=== PATIENT | female | born 1970 | race Caucasian/White ===

== ENCOUNTER 2017-08-21 14:39 | Emergency (ER) | payer OTHER ==
[~2017-08-21] VITALS: Ht 180.3 cm; Wt 83.9 kg
[~2017-08-21 14:39] MED LIST: ACEBUTCAFT PO; ACEDIPPM PO; ACET325; ACET500; ACETAMINOPHEN; ALBU90OI; ALBU90OI INH; ALBU90OI6 INH; ALBUIS; ALPR.5 PO; AMOCLA875 PO; AMOX500 PO; ARIP10 PO; ASPI81CH PO; AZIT250 PO; BENZ100A PO; BUPR100; CALCA500CH; CIPR500 PO; CLAR250 PO; CLON.5; CLON.5 PO; CYAN1000I; CYCL10 PO; Cipro500 MG PO; Cyclobenzaprine5 MG PO; DIPATR PO; DIPHENHYDRAMINE; EPIN.3I; EXCEDRIN PM; FLUSAL5005; Flagyl500 MG PO; GABA300 PO; GRALISE1 EACH PO; HYDACE5 PO; HYDGUAL120 PO; HYDR1TAB94 PO; IBUP800 PO; LAMO25 PO; LATUDA20 MG PO; LEVFLO500 PO; LEXAPRO; LOPE2C PO; Levaquin500 MG PO; Lisinopril2.5 MG PO; MIRT15ST; Minipress1 MG PO; NAPR500EC PO; NITR100CA PO; Norco 10-325 T1 EACH PO; Norco 5-325 Ta1 EACH PO; ONDA4 PO; ONDA4ODT MM; OXYACE5T PO; PHENA200 PO; PRED10 PO; PRED20 PO; PROM25 PO; PROPRANOLOL HCL MC; Pepcid40 MG PO; Percocet 5-3251 EACH PO; Prednisone20 MG PO; Prilosec Otc20 MG PO; Protonix40 MG PO; QUET100 PO; RXHYDACE PO; SULTRIDS PO; TOPI25; TRAZ100; TRAZ150T57; TRAZ150T57 PO; TRAZ50; TYLENOL PM; VENL150ER PO; VENL75ER; Zithromax250 MG PO; Zofran Odt4 MG SL; [UNRECOGNIZED DRUG - CODE] PO
[2017-08-21 15:35] LABS: BASOPHILS ABSOLUTE AUTO 0.07 K/mm3 (0.00-0.23); BASOPHILS PERCENT AUTO 1 % (0-2); EOSINOPHILS ABSOLUTE AUTO 0.53 K/mm3 (0.00-0.68); EOSINOPHILS PERCENT AUTO 5 % (0-6); Hematocrit 45.6 % (33.0-51.0); IMMATURE GRAN ABSOLUTE AUTO 0.09 K/mm3 (0.00-0.10); IMMATURE GRAN PERCENT AUTO 1 % (0-1); LYMPHOCYTES ABSOLUTE AUTO 2.87 K/mm3 (0.84-5.20); LYMPHOCYTES PERCENT AUTO 26 % (21-46); MONOCYTES ABSOLUTE AUTO 0.61 K/mm3 (0.16-1.47); MONOCYTES PERCENT AUTO 6 % (4-13); Mean Corpuscular HGB 31.3 pg (26.0-34.0); Mean Corpuscular HGB Conc 32.9 g/dL (31.5-36.5); Mean Corpuscular Volume 95 fL (80-100); Mean Platelet Volume 9.2 fL (9.1-12.4); NEUTROPHILS ABSOLUTE AUTO 6.96 K/mm3 (1.96-9.15); NEUTROPHILS PERCENT AUTO 63 % (41-73); Platelet Count 258 K/mm3 (150-400); RDW Coefficient Variation 12.8 % (11.7-14.2); RDW Standard Deviation 44.8 fL (35.1-46.3); Red Blood Cell Count 4.79 M/mm3 (3.80-5.20); White Blood Cell Count 11.13 K/mm3 (4.00-11.30)
[2017-08-21 15:55] LABS: Alanine Aminotransfer (ALT/SGP 21 U/L (12-78); Albumin, Blood 3.4 g/dL (3.4-5.0); Albumin/Globulin Ratio 0.9 (0.8-1.8); Alk Phos 82 U/L (50-136); Anion Gap 9 mmol/L (6-16); Aspartate Aminotrans (AST/SGOT 18 U/L (12-37); Bilirubin, Total 0.2 mg/dL (0.1-1.0); Blood Urea Nitrogen 11 mg/dL (8-24); Bun/Creatinine Ratio 13.7 (12.0-20.0); CO2, Blood 24 mmol/L (21-32); Calcium, Blood 8.9 mg/dL (8.5-10.1); Chloride, Blood 108 mmol/L (98-108); Globulin, Blood 3.6 g/dL (2.2-4.0); Glomerular Filtration Rate >60 (60-); Glucose, Blood 97 mg/dL (70-99); Potassium, Blood 3.8 mmol/L (3.5-5.5); Sodium, Blood 141 mmol/L (136-145)
[2017-08-21 16:05] LABS: Source, Urine Clean Catch
[2017-08-21 16:12] LABS: Appearance, Urine Clear (Clear); Bilirubin, Urine Neg (Neg); Blood, Urine 1+ (Neg); Color, Urine Yellow (P-Yellow); Glucose Qualitative, Urine Neg (Neg); Ketones, Urine Neg (Neg); Leukocyte Esterase, Urine 1+ (Neg); Nitrite, Urine Neg (Neg); Protein, Urine Neg (Neg); Specific Gravity, Urine 1.025 (1.003-1.022); Urobilinogen, Urine 1+ (Normal)
[2017-08-21 16:21] LABS: Squamous Epithelial Cells Many /hpf (Few)
[2017-08-21 16:22] LABS: Bacteria Few /hpf; Calcium Oxalate Crystals Many /hpf; Red Blood Cells, Urine Not Seen /hpf (0-2); White Blood Cells, Urine 0-2 /hpf (0-5)
[2017-08-21] MEDS ORDERED: LATUDA40 MG PO (16:54)
[2017-08-21] MEDS ORDERED: OXYB5 PO (16:55)
[2017-08-21] MEDS ORDERED: GABA100 PO (16:56)
[2017-08-21] MEDS ORDERED: HYOSCYAMINE0.375 M1 PO (16:57)
[2017-08-21] MEDS ORDERED: Kristalose20 GM PO (19:25)
[2018-03-12] MEDS ORDERED: GABA400 PO (09:21)
[2018-03-12] MEDS ORDERED: CLON1 PO (09:22)
[2018-03-12] MEDS ORDERED: EPINEPHRIN0.3 MG/0.3 (09:23)
[2018-03-12] MEDS ORDERED: CYAN500 PO (09:23)
[2018-03-12] MEDS ORDERED: TUMS200 MG (09:24)
[2018-03-12] MEDS ORDERED: Effexor Xr150 MG PO (09:24)
[2018-03-12] MEDS ORDERED: ALBU90OI61 INH (09:25)
[2018-03-12] MEDS ORDERED: SIMV10 PO (09:26)
[2018-03-12] MEDS ORDERED: Cyclobenzaprine5 MG PO (09:26)
[2018-03-12] MEDS ORDERED: CONEST.625 VAG (09:28)
[2018-03-12] MEDS ORDERED: Omeprazole20 M1 PO (09:29)
[2018-03-12] MEDS ORDERED: ANORO ELLIPTA1 EACH INH (09:29)
[2018-03-12] MEDS ORDERED: Estradiol1 MG PO (09:29)
[2018-03-12] MEDS ORDERED: Flonase 0.05% N16 GM (09:30)
[2018-03-12] MEDS ORDERED: TRELEGY ELLIPT1 EACH INH (09:31)
[2018-03-12] MEDS ORDERED: Oxytrol3.9 MG TD (09:32)
[2018-04-15] MEDS ORDERED: Norco 5-325 Ta1 EACH PO ×2 (19:50→20:17)
[2018-04-15] MEDS ORDERED: CEPH500 PO (19:50)
[2018-04-15] MEDS ORDERED: Pyridium100 MG PO ×2 (19:50→20:17)
[2018-04-15] MEDS ORDERED: Zofran Odt4 MG PO ×2 (20:12→20:17)
[2018-04-15] MEDS ORDERED: NITR100CA PO (20:17)
[2018-04-22] MEDS ORDERED: Zofran Odt4 MG SL (18:52)
[2018-04-22] MEDS ORDERED: Flagyl500 MG PO (18:52)
[2018-04-22] MEDS ORDERED: ACETAMINOPHEN500 MG PO (18:52)
[2018-05-25] MEDS ORDERED: LITH300ER PO (19:22)
[2018-05-26] MEDS ORDERED: CALCIUM W/VIT D PO (15:29)
== END 2017-08-21 19:59 | disposition home or self-care (01) ==
LOC: ER 14:39
PROVIDERS: Emergency Medicine
DX: K59.00 Constipation, unspecified (principal); F41.9 Anxiety disorder, unspecified; J44.9 Chronic obstructive pulmonary disease, unspecified; Z87.891 Personal history of nicotine dependence; Z91.038 Other insect allergy status; Z79.82 Long term (current) use of aspirin; Z79.899 Other long term (current) drug therapy; Z91.013 Allergy to seafood; Z91.018 Allergy to other foods
CPT/HCPCS: 36415; 74177; 80053; 81001; 83690; 85025; 87077; 87086; 87186; 96361; 96374; 96375; 99284; J1170; J1885; J2405; J7030; Q9967

== ENCOUNTER 2018-03-15 19:19 | Emergency (ER) | payer OTHER ==
[~2018-03-15] VITALS: Ht 180.3 cm; Wt 90.7 kg
[~2018-03-15 19:19] MED LIST changes: +ALBU90OI61; +ANORO ELLIPTA1 EACH INH; +CLON1 PO; +CONEST.625 VAG; +CYAN500 PO; +EPINEPHRIN0.3 MG/0.3; +Effexor Xr150 MG PO; +Estradiol1 MG PO; +Flonase 0.05% N16 GM; +GABA100 PO; +GABA400 PO; +HYOSCYAMINE0.375 M1 PO; +Kristalose20 GM PO; +LATUDA40 MG PO; +OXYB5 PO; +Omeprazole20 M1 PO; +Oxytrol3.9 MG TD; +SIMV10 PO; +TRELEGY ELLIPT1 EACH INH; +TUMS200 MG
[2018-03-15] MEDS ORDERED: CRUTCH3 XX (20:27)
[2018-03-15] MEDS ORDERED: IBUP400 PO (20:27)
== END 2018-03-15 20:53 | disposition home or self-care (01) ==
LOC: ER 19:19
DX: S80.02XA Contusion of left knee, initial encounter (principal); S50.312A Abrasion of left elbow, initial encounter; W18.30XA Fall on same level, unspecified, initial encounter; Z91.030 Bee allergy status; Z91.013 Allergy to seafood; Z91.018 Allergy to other foods; Z79.899 Other long term (current) drug therapy; Z79.82 Long term (current) use of aspirin; F41.9 Anxiety disorder, unspecified; Z87.891 Personal history of nicotine dependence; J44.9 Chronic obstructive pulmonary disease, unspecified
CPT/HCPCS: 29505; 73562-LT; 99283-25

== ENCOUNTER 2018-03-19 11:24 | Day surgery (SDC) | payer OTHER ==
[~2018-03-19] VITALS: Ht 180.3 cm; Wt 96.8 kg
[~2018-03-19 11:24] MED LIST changes: +CRUTCH3 XX; +IBUP400 PO
== END 2018-03-19 17:20 | disposition home or self-care (01) ==
LOC: ORSCSDS 11:24
PROVIDERS: Obstetrics & Gynecology Gynecology
PROC: 0UT24ZZ Resection of Bilateral Ovaries, Percutaneous Endoscopic Approach (ICD-10-PCS; principal; 2018-03-19 13:00)
PROC: 0TSD0ZZ Reposition Urethra, Open Approach (ICD-10-PCS; principal; 2018-03-19 13:00)
PROC: 0UT74ZZ Resection of Bilateral Fallopian Tubes, Percutaneous Endoscopic Approach (ICD-10-PCS; principal; 2018-03-19 13:00)
DX: N39.3 Stress incontinence (female) (male) (principal); R10.2 Pelvic and perineal pain; N80.3 Endometriosis of pelvic peritoneum; N39.41 Urge incontinence; I10 Essential (primary) hypertension; K21.9 Gastro-esophageal reflux disease without esophagitis; F43.10 Post-traumatic stress disorder, unspecified; F32.9 Major depressive disorder, single episode, unspecified; J45.909 Unspecified asthma, uncomplicated; Z79.899 Other long term (current) drug therapy
CPT/HCPCS: 88305; C1771; J0171; J0690; J1100; J1885; J1940; J2250; J2405; J2710; J3010

== ENCOUNTER 2018-03-27 12:03 | Emergency (ER) | payer OTHER ==
[~2018-03-27] VITALS: Ht 180.3 cm; Wt 90.7 kg
[2018-03-27] MEDS ORDERED: STERIOD INHALER (13:26)
[2018-03-27] MEDS ORDERED: Hydrocodone-Ap1 EA23 PO (13:26)
[2018-03-27 13:32] LABS: Source, Urine Clean Catch
[2018-03-27 13:41] LABS: Bilirubin, Urine Neg (Neg); Blood, Urine 3+ (Neg); Glucose Qualitative, Urine Neg (Neg); Ketones, Urine Neg (Neg); Leukocyte Esterase, Urine 2+ (Neg); Nitrite, Urine Neg (Neg); Protein, Urine Neg (Neg); Specific Gravity, Urine 1.025 (1.003-1.022); Urobilinogen, Urine NORM (Normal)
[2018-03-27 13:52] LABS: Appearance, Urine Cloudy (Clear); Color, Urine Yellow (P-Yellow)
[2018-03-27 13:54] LABS: Bacteria Many /hpf; Squamous Epithelial Cells Mod /hpf (Few)
[2018-03-27 14:08] LABS: BASOPHILS ABSOLUTE AUTO 0.07 K/mm3 (0.00-0.23); BASOPHILS PERCENT AUTO 1 % (0-2); EOSINOPHILS ABSOLUTE AUTO 0.26 K/mm3 (0.00-0.68); EOSINOPHILS PERCENT AUTO 3 % (0-6); Hematocrit 44.5 % (33.0-51.0); Hemoglobin 14.5 g/dL (11.5-16.0); IMMATURE GRAN ABSOLUTE AUTO 0.08 K/mm3 (0.00-0.10); IMMATURE GRAN PERCENT AUTO 1 % (0-1); LYMPHOCYTES ABSOLUTE AUTO 2.39 K/mm3 (0.84-5.20); LYMPHOCYTES PERCENT AUTO 28 % (21-46); MONOCYTES ABSOLUTE AUTO 0.72 K/mm3 (0.16-1.47); MONOCYTES PERCENT AUTO 8 % (4-13); Mean Corpuscular HGB 31.4 pg (26.0-34.0); Mean Corpuscular HGB Conc 32.6 g/dL (31.5-36.5); Mean Corpuscular Volume 96 fL (80-100); Mean Platelet Volume 8.6 fL (9.1-12.4); NEUTROPHILS ABSOLUTE AUTO 5.16 K/mm3 (1.96-9.15); NEUTROPHILS PERCENT AUTO 60 % (41-73); Platelet Count 266 K/mm3 (150-400); RDW Coefficient Variation 13.2 % (11.7-14.2); Red Blood Cell Count 4.62 M/mm3 (3.80-5.20); White Blood Cell Count 8.68 K/mm3 (4.00-11.30)
[2018-03-27 14:30] LABS: Alanine Aminotransfer (ALT/SGP 28 U/L (12-78); Albumin, Blood 3.4 g/dL (3.4-5.0); Albumin/Globulin Ratio 0.9 (0.8-1.8); Alk Phos 90 U/L (50-136); Anion Gap 6 mmol/L (6-16); Aspartate Aminotrans (AST/SGOT 26 U/L (12-37); Bilirubin, Total 0.5 mg/dL (0.1-1.0); Blood Urea Nitrogen 7 mg/dL (8-24); CO2, Blood 26 mmol/L (21-32); Calcium, Blood 8.8 mg/dL (8.5-10.1); Chloride, Blood 108 mmol/L (98-108); Creatinine, Blood 0.88 mg/dL (0.40-1.00); Globulin, Blood 3.7 g/dL (2.2-4.0); Glomerular Filtration Rate >60 (60-); Glucose, Blood 96 mg/dL (70-99); Potassium, Blood 3.9 mmol/L (3.5-5.5); Sodium, Blood 140 mmol/L (136-145); Total Protein, Blood 7.1 g/dL (6.4-8.2)
[2018-03-27] MEDS ORDERED: CEPH500 PO (15:51)
[2018-03-27] MEDS ORDERED: Prednisone20 MG PO (15:51)
== END 2018-03-27 16:16 | disposition home or self-care (01) ==
LOC: ER 12:03
PROVIDERS: Emergency Medicine; Physician Assistant
DX: N39.0 Urinary tract infection, site not specified (principal); L25.9 Unspecified contact dermatitis, unspecified cause; Z91.030 Bee allergy status; Z91.013 Allergy to seafood; Z88.8 Allergy status to other drugs, medicaments and biological substances; Z91.018 Allergy to other foods; Z79.899 Other long term (current) drug therapy; Z79.82 Long term (current) use of aspirin; Z79.52 Long term (current) use of systemic steroids; F41.9 Anxiety disorder, unspecified; J44.9 Chronic obstructive pulmonary disease, unspecified
CPT/HCPCS: 36415; 80053; 81001; 83690; 85025; 87086; 96361; 96365; 96375; 99283-25; J0696; J1170; J3010; J7030

== ENCOUNTER → 2018-10-12 | Outpatient (CLI) | payer OTHER ==
[~2018-10-12] MED LIST changes: +ACETAMINOPHEN500 MG PO; -ALBU90OI61; +ALBU90OI61 INH; +CALCIUM W/VIT D PO; +CEPH500 PO; +Hydrocodone-Ap1 EA23 PO; +LITH300ER PO; +Pyridium100 MG PO; +STERIOD INHALER; +Zofran Odt4 MG PO
== END | disposition home or self-care (01) ==
LOC: LAB SHORT 13:55 → LAB EV 13:55
DX: N39.0 Urinary tract infection, site not specified (principal)
CPT/HCPCS: 87086

== ENCOUNTER 2018-11-04 11:43 | Emergency (ER) | payer MEDICARE, OTHER ==
[~2018-11-04] VITALS: Ht 180.3 cm; Wt 88.5 kg
[2018-11-04 12:06] LABS: BASOPHILS ABSOLUTE AUTO 0.06 K/mm3 (0.00-0.23); BASOPHILS PERCENT AUTO 1 % (0-2); EOSINOPHILS ABSOLUTE AUTO 0.26 K/mm3 (0.00-0.68); EOSINOPHILS PERCENT AUTO 3 % (0-6); Hemoglobin 16.3 g/dL (11.5-16.0); IMMATURE GRAN ABSOLUTE AUTO 0.03 K/mm3 (0.00-0.10); IMMATURE GRAN PERCENT AUTO 0 % (0-1); LYMPHOCYTES ABSOLUTE AUTO 2.38 K/mm3 (0.84-5.20); LYMPHOCYTES PERCENT AUTO 25 % (21-46); MONOCYTES ABSOLUTE AUTO 0.46 K/mm3 (0.16-1.47); MONOCYTES PERCENT AUTO 5 % (4-13); Mean Corpuscular HGB 31.4 pg (26.0-34.0); Mean Corpuscular Volume 98 fL (80-100); Mean Platelet Volume 9.8 fL (9.1-12.4); NEUTROPHILS ABSOLUTE AUTO 6.43 K/mm3 (1.96-9.15); NEUTROPHILS PERCENT AUTO 67 % (41-73); Platelet Count 266 K/mm3 (150-400); RDW Coefficient Variation 12.7 % (11.7-14.2); RDW Standard Deviation 46.2 fL (35.1-46.3); Red Blood Cell Count 5.19 M/mm3 (3.80-5.20); White Blood Cell Count 9.62 K/mm3 (4.00-11.30)
[2018-11-04 12:24] LABS: Alanine Aminotransfer (ALT/SGP 23 U/L (12-78); Albumin, Blood 3.8 g/dL (3.4-5.0); Albumin/Globulin Ratio 1.1 (0.8-1.8); Alk Phos 89 U/L (50-136); Anion Gap 4 mmol/L (6-16); Aspartate Aminotrans (AST/SGOT 21 U/L (12-37); Bilirubin, Total 0.4 mg/dL (0.1-1.0); Blood Urea Nitrogen 4 mg/dL (8-24); Bun/Creatinine Ratio 4.8 (12.0-20.0); CO2, Blood 27 mmol/L (21-32); Calcium, Blood 9.4 mg/dL (8.5-10.1); Chloride, Blood 109 mmol/L (98-108); Creatinine, Blood 0.84 mg/dL (0.40-1.00); Globulin, Blood 3.5 g/dL (2.2-4.0); Glomerular Filtration Rate >60 (60-); Glucose, Blood 110 mg/dL (70-99); Potassium, Blood 3.2 mmol/L (3.5-5.5); Sodium, Blood 140 mmol/L (136-145); Total Protein, Blood 7.3 g/dL (6.4-8.2); Troponin I <0.015 ng/mL (0.000-0.040)
[2018-11-04 14:12] LABS: Lithium 1.32 mmol/L (0.60-1.20)
[2018-11-04] MEDS ORDERED: ANORO ELLIPTA1 EACH INH (14:59)
[2018-11-04] MEDS ORDERED: STIOLTO RESPIMAT4 GM IH (14:59)
[2018-11-04 16:38] LABS: Anion Gap 3 mmol/L (6-16); Blood Urea Nitrogen 3 mg/dL (8-24); Bun/Creatinine Ratio 3.9 (12.0-20.0); CO2, Blood 27 mmol/L (21-32); Calcium, Blood 8.7 mg/dL (8.5-10.1); Chloride, Blood 111 mmol/L (98-108); Creatinine, Blood 0.77 mg/dL (0.40-1.00); Glomerular Filtration Rate >60 (60-); Glucose, Blood 73 mg/dL (70-99); Sodium, Blood 141 mmol/L (136-145)
[2018-11-04 16:42] LABS: Lithium 1.04 mmol/L (0.60-1.20)
== END 2018-11-04 16:59 | disposition home or self-care (01) ==
LOC: ER 11:43
PROVIDERS: Emergency Medicine
DX: R07.9 Chest pain, unspecified (principal); F41.9 Anxiety disorder, unspecified; E87.6 Hypokalemia; F31.9 Bipolar disorder, unspecified; J44.9 Chronic obstructive pulmonary disease, unspecified; Z91.038 Other insect allergy status; Z91.013 Allergy to seafood; Z88.5 Allergy status to narcotic agent; Z88.8 Allergy status to other drugs, medicaments and biological substances; Z91.018 Allergy to other foods; Z79.899 Other long term (current) drug therapy; Z79.82 Long term (current) use of aspirin; Z87.891 Personal history of nicotine dependence
CPT/HCPCS: 36415; 71046; 80048; 80053; 80178; 83690; 84484; 85025; 93005; 93010; 96360; 99285-25; J7030

== ENCOUNTER → 2019-01-20 | Outpatient (CLI) | payer OTHER ==
[~2019-01-20] MED LIST changes: +ATOR80 PO; +Aspirin EC81 MG PO; +B-121000 MC2 PO; +CLON2 PO; +EPINEPHRIN0.3 MG/0.3 IM; +Estrogel93 GM VAG; +IBU600 MG PO; +LITH300C PO; +METO10 PO; +OMEPRAZOLE20 MG PO; +ONDA8 PO; +PROAIR RESPICL90 MCG INH; +STIOLTO RESPIMAT4 GM IH; +STIOLTO RESPIMAT4 GM INH; +TUMS500 MG PO
[2019-01-20 15:20] LABS: Source, Urine Clean Catch
[2019-01-20 17:50] LABS: Appearance, Urine Hazy (Clear); Bilirubin, Urine Neg (Neg); Blood, Urine 3+ (Neg); Color, Urine Yellow (P-Yellow); Glucose Qualitative, Urine Neg (Neg); Ketones, Urine Neg (Neg); Leukocyte Esterase, Urine 3+ (Neg); Nitrite, Urine Neg (Neg); Protein, Urine 1+ (Neg); Specific Gravity, Urine 1.005 (1.003-1.022); Urobilinogen, Urine NORM (Normal)
[2019-01-20 18:15] LABS: Bacteria Few /hpf; Squamous Epithelial Cells Mod /hpf (Few); White Blood Cells, Urine 25-50 /hpf (0-5)
== END | disposition home or self-care (01) ==
LOC: LAB 15:17 → LAB SHORT 15:17
PROVIDERS: Nurse Practitioner Family
DX: R30.0 Dysuria (principal)
CPT/HCPCS: 81001; 87077; 87086; 87186

== ENCOUNTER 2019-03-16 20:42 | Emergency (ER) | payer OTHER ==
[~2019-03-16] VITALS: Ht 170.2 cm; Wt 63.5 kg
[~2019-03-16 20:42] MED LIST changes: -IBU600 MG PO
[2019-03-16] MEDS ORDERED: IBU600 MG PO (23:26)
== END 2019-03-16 23:47 | disposition home or self-care (01) ==
LOC: ER 20:42
DX: S93.602A Unspecified sprain of left foot, initial encounter (principal); F31.9 Bipolar disorder, unspecified; F41.9 Anxiety disorder, unspecified; F43.10 Post-traumatic stress disorder, unspecified; J44.9 Chronic obstructive pulmonary disease, unspecified; Z87.891 Personal history of nicotine dependence; K31.84 Gastroparesis; Z91.013 Allergy to seafood; Z88.8 Allergy status to other drugs, medicaments and biological substances; Z91.018 Allergy to other foods; Z88.5 Allergy status to narcotic agent; Z91.038 Other insect allergy status; Z79.82 Long term (current) use of aspirin; W19.XXXA Unspecified fall, initial encounter; Z79.899 Other long term (current) drug therapy
CPT/HCPCS: 73630; 73700; 99284-25; A9270-GY

== ENCOUNTER 2019-03-21 12:26 | Day surgery (SDC) | payer OTHER ==
[~2019-03-21] VITALS: Ht 180.3 cm; Wt 71.7 kg
[~2019-03-21 12:26] MED LIST changes: +IBU600 MG PO
--- NOTE | 2019-03-21 14:33 | NUR ---
03/21/[address] CONSULTED, INTO ROOM TO SPEAK WITH PATIENT. DR. TAYLOR & DR. BYERS AGREE TO CONTINUE PROCEDURE WITH ANESTHESIA.
== END 2019-03-21 16:20 | disposition home or self-care (01) ==
LOC: ORSCSDS 12:26
PROVIDERS: Internal Medicine Gastroenterology
PROC: 0DBE8ZX Excision of Large Intestine, Via Natural or Artificial Opening Endoscopic, Diagnostic (ICD-10-PCS; principal; 2019-03-21 13:45)
PROC: 0DBK8ZX Excision of Ascending Colon, Via Natural or Artificial Opening Endoscopic, Diagnostic (ICD-10-PCS; principal; 2019-03-21 13:45)
DX: R19.7 Diarrhea, unspecified (principal); R10.32 Left lower quadrant pain; D12.2 Benign neoplasm of ascending colon; J44.9 Chronic obstructive pulmonary disease, unspecified; Z87.891 Personal history of nicotine dependence; Z99.81 Dependence on supplemental oxygen; F31.9 Bipolar disorder, unspecified; Z79.899 Other long term (current) drug therapy
CPT/HCPCS: 88305; J2704; J7120

== ENCOUNTER 2020-01-12 19:35 | Emergency (ER) | payer OTHER ==
[~2020-01-12] VITALS: Ht 182.9 cm; Wt 69.8 kg
[2020-01-12] MEDS ORDERED: LAMOTRIGINE100 M1 PO (20:38)
== END 2020-01-12 21:25 | disposition home or self-care (01) ==
LOC: ER 19:35
DX: J02.9 Acute pharyngitis, unspecified (principal); F41.9 Anxiety disorder, unspecified; J44.9 Chronic obstructive pulmonary disease, unspecified; F31.9 Bipolar disorder, unspecified; Z91.030 Bee allergy status; Z91.013 Allergy to seafood; Z88.5 Allergy status to narcotic agent; Z91.018 Allergy to other foods; Z79.899 Other long term (current) drug therapy; Z79.82 Long term (current) use of aspirin; Z87.891 Personal history of nicotine dependence
CPT/HCPCS: 36415; 86308; 87081; 87430; 99282

== ENCOUNTER → 2020-07-25 | Outpatient (CLI) | payer OTHER ==
[~2020-07-25] MED LIST changes: +ATOR40TA PO; -ATOR80 PO; -B-121000 MC2 PO; +B-121000 MC7 PO; -Effexor Xr150 MG PO; +IMITREX50 M1 PO; +Inderal40 MG PO; +LAMOTRIGINE100 M1 PO; +LORA.5 PO; +NEURONTIN300 MG PO; +TOPI50 PO; +TYLENOL PM PO
== END ==
LOC: LAB SHORT 15:20 → LAB 15:20
DX: R10.9 Unspecified abdominal pain (principal)
CPT/HCPCS: 87086

== ENCOUNTER 2020-09-09 09:26 | Observation (INO) | payer OTHER ==
[~2020-09-09] VITALS: Ht 185.4 cm; Wt 71.5 kg
[~2020-09-09 09:26] MED LIST changes: -IMITREX50 M1 PO; -Inderal40 MG PO; -LORA.5 PO; -NEURONTIN300 MG PO; -TOPI50 PO; -TYLENOL PM PO
[2020-09-09 09:57] LABS: BASOPHILS ABSOLUTE AUTO 0.08 K/mm3 (0.00-0.23); BASOPHILS PERCENT AUTO 1 % (0-2); EOSINOPHILS ABSOLUTE AUTO 0.59 K/mm3 (0.00-0.68); EOSINOPHILS PERCENT AUTO 6 % (0-6); Hematocrit 45.6 % (33.0-51.0); Hemoglobin 14.5 g/dL (11.5-16.0); IMMATURE GRAN ABSOLUTE AUTO 0.03 K/mm3 (0.00-0.10); IMMATURE GRAN PERCENT AUTO 0 % (0-1); LYMPHOCYTES ABSOLUTE AUTO 2.08 K/mm3 (0.84-5.20); LYMPHOCYTES PERCENT AUTO 20 % (21-46); MONOCYTES ABSOLUTE AUTO 0.45 K/mm3 (0.16-1.47); MONOCYTES PERCENT AUTO 4 % (4-13); Mean Corpuscular HGB 32.1 pg (26.0-34.0); Mean Corpuscular HGB Conc 31.8 g/dL (31.5-36.5); Mean Corpuscular Volume 101 fL (80-100); Mean Platelet Volume 9.9 fL (9.1-12.4); NEUTROPHILS ABSOLUTE AUTO 7.42 K/mm3 (1.96-9.15); NEUTROPHILS PERCENT AUTO 70 % (41-73); Platelet Count 298 K/mm3 (150-400); RDW Coefficient Variation 13.3 % (11.7-14.2); RDW Standard Deviation 49.8 fL (35.1-46.3); Red Blood Cell Count 4.52 M/mm3 (3.80-5.20); White Blood Cell Count 10.65 K/mm3 (4.00-11.30)
[2020-09-09 10:20] LABS: Alanine Aminotransfer (ALT/SGP 18 U/L (12-78); Albumin, Blood 3.4 g/dL (3.4-5.0); Alk Phos 116 U/L (50-136); Anion Gap 3 mmol/L (6-16); Aspartate Aminotrans (AST/SGOT 12 U/L (12-37); Bilirubin, Total 0.3 mg/dL (0.1-1.0); Blood Urea Nitrogen 7 mg/dL (8-24); Bun/Creatinine Ratio 7.1 (12.0-20.0); CO2, Blood 25 mmol/L (21-32); Calcium, Blood 8.7 mg/dL (8.5-10.1); Chloride, Blood 112 mmol/L (98-108); Creatinine, Blood 0.98 mg/dL (0.40-1.00); Globulin, Blood 3.3 g/dL (2.2-4.0); Glomerular Filtration Rate >60 (60-); Glucose, Blood 95 mg/dL (70-99); Potassium, Blood 3.8 mmol/L (3.5-5.5); Sodium, Blood 140 mmol/L (136-145); Total Protein, Blood 6.7 g/dL (6.4-8.2); Troponin I <0.015 ng/mL (0.000-0.040)
[2020-09-09 10:23] LABS: Source, Urine Clean Catch
[2020-09-09 10:25] LABS: Bilirubin, Urine Neg (Neg); Blood, Urine Neg (Neg); Glucose Qualitative, Urine Neg (Neg); Ketones, Urine Neg (Neg); Leukocyte Esterase, Urine 1+ (Neg); Nitrite, Urine Neg (Neg); Protein, Urine Neg (Neg); Urobilinogen, Urine NORM (Normal); pH, Urine 6.5 (5.0-8.0)
[2020-09-09 10:33] LABS: Appearance, Urine Clear (Clear); Bacteria Rare /hpf; Color, Urine Yellow (P-Yellow); Red Blood Cells, Urine Not Seen /hpf (0-2); Squamous Epithelial Cells Rare /hpf (Few); White Blood Cells, Urine 0-2 /hpf (0-5)
[2020-09-09] MEDS ORDERED: LORA.5 PO (10:34)
[2020-09-09] MEDS ORDERED: Inderal40 MG PO ×2 (10:34→12:12)
[2020-09-09] MEDS ORDERED: TOPI50 PO (10:35)
[2020-09-09] MEDS ORDERED: TYLENOL PM PO (10:41)
[2020-09-09] MEDS ORDERED: IMITREX50 M1 PO (10:42)
[2020-09-09 11:07] LABS: Lithium 1.42 mmol/L (0.60-1.20)
[2020-09-09] MEDS ORDERED: NEURONTIN300 MG PO (12:12)
[2020-09-09] MEDS ORDERED: LITH300C PO (12:14)
--- NOTE | 2020-09-09 15:10 | NUR ---
SBAR REPORT FROM TANYA BURGESS RN
[2020-09-09 16:21] LABS: Lithium 1.09 mmol/L (0.60-1.20)
[2020-09-10 06:18] LABS: Anion Gap 3 mmol/L (6-16); Blood Urea Nitrogen 7 mg/dL (8-24); Bun/Creatinine Ratio 7.8 (12.0-20.0); CO2, Blood 23 mmol/L (21-32); Calcium, Blood 8.7 mg/dL (8.5-10.1); Chloride, Blood 118 mmol/L (98-108); Creatinine, Blood 0.89 mg/dL (0.40-1.00); Glomerular Filtration Rate >60 (60-); Glucose, Blood 90 mg/dL (70-99); Lithium 0.75 mmol/L (0.60-1.20); Potassium, Blood 3.9 mmol/L (3.5-5.5); Sodium, Blood 144 mmol/L (136-145)
--- NOTE | 2020-09-10 07:35 | NUR ---
SHIFT SUMMARY PATIENT ALERT AND ORIENTED. INDEPENDENT IN HER ROOM. WAS MEDICATED ONCE PER EMAR FOR PAIN. WAS ABLE TO SLEEP WELL OVERNIGHT. CONTINUES TO REPORT FEELING SOME CHEST PRESSURE. IV PATENT AND INFUSING. BED IN LOWEST POSITION WITH WHEELS LOCKED. CALL LIGHT WITHIN REACH. REPORT GIVEN TO ONCOMING RN.
--- NOTE | 2020-09-10 11:02 | NUR ---
1030: REPORT GIVEN TO [facility] AND CARE TRANSFERRED.
--- NOTE | 2020-09-10 12:42 | NUR ---
PT TO DISCHARGE HOME . IV REMOVED, NO SS OF INFECTION NOTED. PT TO DRESS SELF. TRIED TO CALL AND SCHEDULE FOLLOW UP WITH PCP BUT OFFICES CLOSED TILL 1300 AND PT WANTING TO GO. PT TO MAKE APPOINTMENTS HERSELF. PT REQUESTED TO WALK OUT. SHE IS STABLE AND HAS WITH HER TO TAKE HER HOME.
== END 2020-09-10 14:10 | disposition home or self-care (01) ==
LOC: ER 09:26 → MEDS 09:27 → ERHOLD 09:27 → MEDS 15:32 → ENPENDDIS 09-10 12:05 → MEDS 09-10 14:10
PROVIDERS: Emergency Medicine; Nurse Practitioner Acute Care; ADMIT Hospitalist
DX: R00.1 Bradycardia, unspecified (principal); K52.89 Other specified noninfective gastroenteritis and colitis; F41.1 Generalized anxiety disorder; G43.909 Migraine, unspecified, not intractable, without status migrainosus; J44.9 Chronic obstructive pulmonary disease, unspecified; I10 Essential (primary) hypertension; K31.84 Gastroparesis; F31.89 Other bipolar disorder; Z66 Do not resuscitate; Z86.73 Personal history of transient ischemic attack (TIA), and cerebral infarction without residual deficits; Z79.82 Long term (current) use of aspirin; Z87.891 Personal history of nicotine dependence; Z91.038 Other insect allergy status; Z88.5 Allergy status to narcotic agent; Z91.013 Allergy to seafood; Z88.8 Allergy status to other drugs, medicaments and biological substances; Z91.018 Allergy to other foods
CPT/HCPCS: 36415; 74177; 80048; 80053; 80178; 81001; 83690; 84484; 85025; 85651; 86140; 87086; 93005; 93010; 96372; 96372-59; 96374-59; 96375; 99285-25; A9270; G0378; J1650; J2405; J3010; J7030; J7120; Q9967

== ENCOUNTER → 2020-11-02 | Outpatient (CLI) | payer OTHER ==
[~2020-11-02] MED LIST changes: +IMITREX50 M1 PO; +Inderal40 MG PO; +LORA.5 PO; +NEURONTIN300 MG PO; +TOPI50 PO; +TYLENOL PM PO
[2020-11-05 01:09] LABS: CHLAMYDIA TRACHOMATIS, NAA Negative (Negative)
== END | disposition home or self-care (01) ==
LOC: LAB SHORT 18:04
PROVIDERS: Nurse Practitioner Family
DX: R30.0 Dysuria (principal); N89.8 Other specified noninflammatory disorders of vagina
CPT/HCPCS: 87086; 87491; 87591

== ENCOUNTER → 2020-11-02 | Outpatient (CLI) | payer OTHER ==
[2020-11-03 11:10] LABS: Candida species (DNA Probe) Negative (NEGATIVE); G. vaginalis (DNA Probe) Positive (NEGATIVE); T. vaginalis (DNA Probe) Negative (NEGATIVE)
== END | disposition home or self-care (01) ==
LOC: LAB SHORT 17:24 → PLD 17:24
PROVIDERS: Nurse Practitioner Family
DX: N89.8 Other specified noninflammatory disorders of vagina (principal); R30.0 Dysuria
CPT/HCPCS: 87070; 87086; 87205; 87480; 87491; 87510; 87591; 87660

== ENCOUNTER → 2021-12-05 | Outpatient (CLI) | payer OTHER ==
[~2021-12-05] MED LIST changes: +CONEST.9; +IBU800 MG PO; +PREG25
== END | disposition home or self-care (01) ==
LOC: LAB SHORT 12:00 → LAB 12:00
DX: L60.3 Nail dystrophy (principal)
CPT/HCPCS: 87102

== ENCOUNTER 2021-12-18 09:17 | Emergency (ER) | payer OTHER ==
[~2021-12-18] VITALS: Ht 172.7 cm; Wt 72.6 kg
[~2021-12-18 09:17] MED LIST changes: -IBU800 MG PO
[2021-12-18] MEDS ORDERED: IBU800 MG PO (10:28)
== END 2021-12-18 11:06 | disposition home or self-care (01) ==
LOC: ER 09:17
DX: M79.672 Pain in left foot (principal); J44.9 Chronic obstructive pulmonary disease, unspecified; W01.0XXA Fall on same level from slipping, tripping and stumbling without subsequent striking against object, initial encounter; Z88.5 Allergy status to narcotic agent; Z88.8 Allergy status to other drugs, medicaments and biological substances; Z91.018 Allergy to other foods; Z91.030 Bee allergy status; Z91.013 Allergy to seafood; Z79.899 Other long term (current) drug therapy; Z79.82 Long term (current) use of aspirin; Z87.891 Personal history of nicotine dependence
CPT/HCPCS: 73630; A9270

== ENCOUNTER → 2022-12-07 | Outpatient (CLI) | payer OTHER ==
[~2022-12-07] MED LIST changes: +IBU800 MG PO
[2022-12-08 09:27] LABS: Candida species (DNA Probe) Negative (NEGATIVE); G. vaginalis (DNA Probe) Positive (NEGATIVE); T. vaginalis (DNA Probe) Negative (NEGATIVE)
== END ==
LOC: LAB SHORT 18:22 → LAB 18:22
PROVIDERS: Family Medicine
DX: N89.8 Other specified noninflammatory disorders of vagina (principal)
CPT/HCPCS: 87480; 87510; 87660

== ENCOUNTER → 2023-05-23 | Outpatient (CLI) | payer OTHER ==
[2023-05-24 11:19] LABS: Candida species (DNA Probe) Negative (NEGATIVE); G. vaginalis (DNA Probe) Positive (NEGATIVE); T. vaginalis (DNA Probe) Negative (NEGATIVE)
== END ==
LOC: LAB 16:07 → LAB SHORT 16:07
PROVIDERS: Family Medicine
DX: R35.0 Frequency of micturition (principal); N76.0 Acute vaginitis
CPT/HCPCS: 87086; 87480; 87510; 87660

== ENCOUNTER → 2023-08-09 | Outpatient (CLI) | payer OTHER | LOC: LAB SHORT 14:32 → LAB 14:32 | DX: R35.0 Frequency of micturition (principal) | CPT/HCPCS: 87077; 87086; 87186 ==

== ENCOUNTER → 2023-11-02 | Outpatient (CLI) | payer OTHER | LOC: LAB SHORT 14:59 → LAB 14:59 | DX: R30.0 Dysuria (principal) | CPT/HCPCS: 87077; 87086; 87186 ==

== ENCOUNTER → 2024-05-30 | Outpatient (CLI) | payer OTHER ==
[~2024-05-30] MED LIST changes: +ABILIFY MYCITE2 M2; +FAMO10; +QUET200
[2024-05-30 19:52] LABS: BASOPHILS ABSOLUTE AUTO 0.09 K/mm3 (0.00-0.23); BASOPHILS PERCENT AUTO 1 % (0-2); EOSINOPHILS ABSOLUTE AUTO 0.47 K/mm3 (0.00-0.68); EOSINOPHILS PERCENT AUTO 4 % (0-6); Hematocrit 47.6 % (33.0-51.0); Hemoglobin 15.2 g/dL (11.5-16.0); IMMATURE GRAN ABSOLUTE AUTO 0.06 K/mm3 (0.00-0.10); IMMATURE GRAN PERCENT AUTO 1 % (0-1); LYMPHOCYTES ABSOLUTE AUTO 2.66 K/mm3 (0.84-5.20); LYMPHOCYTES PERCENT AUTO 23 % (21-46); MONOCYTES ABSOLUTE AUTO 0.54 K/mm3 (0.16-1.47); MONOCYTES PERCENT AUTO 5 % (4-13); Mean Corpuscular HGB 32.1 pg (26.0-34.0); Mean Corpuscular HGB Conc 31.9 g/dL (31.5-36.5); Mean Corpuscular Volume 101 fL (80-100); Mean Platelet Volume 9.4 fL (9.1-12.4); NEUTROPHILS ABSOLUTE AUTO 7.99 K/mm3 (1.96-9.15); NEUTROPHILS PERCENT AUTO 68 % (41-73); Platelet Count 314 K/mm3 (150-400); RDW Coefficient Variation 13.3 % (11.7-14.2); RDW Standard Deviation 49.6 fL (35.1-46.3); Red Blood Cell Count 4.73 M/mm3 (3.80-5.20); White Blood Cell Count 11.81 K/mm3 (4.00-11.30)
[2024-05-30 20:09] LABS: Albumin, Blood 3.8 g/dL (3.4-5.0); Albumin/Globulin Ratio 1.2 (0.8-1.8); Bilirubin, Total 0.3 mg/dL (0.1-1.0); Bun/Creatinine Ratio 7.8 (12.0-20.0); Calcium, Blood 9.5 mg/dL (8.5-10.1); Creatinine, Blood 0.9 mg/dL (0.40-1.00); Globulin, Blood 3.3 g/dL (2.2-4.0); Potassium, Blood 4.1 mmol/L (3.5-5.5); Thyroid Stimulating Hormone 1.13 uIU/mL (0.360-4.800); Total Protein, Blood 7.1 g/dL (6.4-8.2)
== END ==
LOC: LAB SHORT 17:44 → LAB 17:44
PROVIDERS: Nurse Practitioner Psychiatric/Mental Health
DX: F31.81 Bipolar II disorder (principal)
CPT/HCPCS: 80053; 84443; 85025

== ENCOUNTER → 2024-07-16 | Outpatient (CLI) | payer OTHER ==
[2024-07-17 11:46] LABS: Candida Group, PCR NOT DETECTED (NOT DETECT)
[2024-07-17 11:47] LABS: Bacterial Vaginosis PCR Positive (NEGATIVE); Candida glabrata-krusei, PCR DETECTED (NOT DETECT)
== END | disposition home or self-care (01) ==
LOC: LAB 11:00 → LAB SHORT 11:00
PROVIDERS: Family Medicine
DX: N76.0 Acute vaginitis (principal); B96.89 Other specified bacterial agents as the cause of diseases classified elsewhere
CPT/HCPCS: 87481; 87661; 87801